=== PATIENT | female | born 1970 ===

== ENCOUNTER → 2020-07-01 | Emergency (ER) | payer OTHER ==
[~2020-07-01] VITALS: Ht 162.6 cm; Wt 87.1 kg
[~2020-07-01] MED LIST: ATORVASTATIN CA10 MG PO; LOSARTAN-HCTZ1 EACH PO; METFORMIN HCL1000 M3 PO; VERAPAMIL ER240 MG PO
== END | disposition home or self-care (01) ==
LOC: ER 14:51
DX: J35.01 Chronic tonsillitis (principal); Z03.818 Encounter for observation for suspected exposure to other biological agents ruled out